=== PATIENT | female | born 1985 | race Caucasian/White ===

== ENCOUNTER 2021-07-14 11:54 | Emergency (ER) | payer OTHER, SELFPAY ==
--- NOTE | ~2021-07-14 | XR_ITS ---
EXAMINATION: XR ANKLE, LEFT XR FOOT, LEFT CLINICAL INFORMATION: Status post injury. COMPARISON: None TECHNIQUE: AP and oblique views of the left ankle. AP and oblique views of the left foot. Lateral view of the left ankle and foot. FINDINGS: Ankle: The bones of the ankle are intact. There is no evidence of acute fracture. Alignment is anatomic. The ankle mortise is congruent. No tibiotalar joint effusion. There is no focal soft tissue swelling. Foot: On the ankle radiographs, there is suggestion of lucency at the base of the 5th metatarsal which is not definitively appreciated on the foot radiographs. The remainder of the foot is unremarkable. Alignment is anatomic with normal joint spaces. The soft tissues are unremarkable. XR/XR ankle LT min 3V IMPRESSION: There is suggestion of lucency at the base of the 5th metatarsal which is seen on the ankle radiographs but not definitively seen on the foot radiographs. However, this is in the location of pain. A nondisplaced radiographically occult 5th metatarsal base fracture is not excluded. Otherwise no other evidence of acute fracture or malalignment in the left ankle and left foot.
--- NOTE | ~2021-07-14 | XR_ITS ---
EXAMINATION: XR ANKLE, LEFT XR FOOT, LEFT CLINICAL INFORMATION: Status post injury. COMPARISON: None TECHNIQUE: AP and oblique views of the left ankle. AP and oblique views of the left foot. Lateral view of the left ankle and foot. FINDINGS: Ankle: The bones of the ankle are intact. There is no evidence of acute fracture. Alignment is anatomic. The ankle mortise is congruent. No tibiotalar joint effusion. There is no focal soft tissue swelling. Foot: On the ankle radiographs, there is suggestion of lucency at the base of the 5th metatarsal which is not definitively appreciated on the foot radiographs. The remainder of the foot is unremarkable. Alignment is anatomic with normal joint spaces. The soft tissues are unremarkable. XR/XR foot LT min 3V IMPRESSION: There is suggestion of lucency at the base of the 5th metatarsal which is seen on the ankle radiographs but not definitively seen on the foot radiographs. However, this is in the location of pain. A nondisplaced radiographically occult 5th metatarsal base fracture is not excluded. Otherwise no other evidence of acute fracture or malalignment in the left ankle and left foot.
[2021-07-14 11:57] VITALS: BP 140/69; PULSE 65; RESP 16; TEMP 36.7; O2SAT 98; BMI 34.1
[2021-07-14] MEDS: Diphth,Pertus(ACell),Tet Adult 0.5 ML SYRINGE IM (13:12)
--- NOTE | 2021-07-14 14:14 | ED.LOWEXIN ---
HPI - Extremity Injury (Lower) General Chief Complaint: Extremity Injury, Lower Stated Complaint: lt foot injury - fall Time Seen by Provider: 07/14/21 12:29 History of Present Illness HPI Narrative: Patient complains of left foot pain after tripping and falling this morning, no numbness weakness or tingling no other injury no skin laceration Related Data Allergies Allergy/AdvReac Type Severity Reaction Status Date / Time azithromycin Allergy Rash Verified 07/14/21 12:01 gluten Allergy Itching Verified 07/14/21 12:01 Review of Systems Review of Systems: Positive for left foot pain Negatives are no headache no head injury no neck pain no back pain no numbness weakness or tingling no skin laceration Yes all other systems are reviewed and are negative PMFSH Past Medical History Source: nursing notes reviewed Medical History (Updated 07/15/21 @ 00:01 by Delroy Sheets) Alopecia Anxiety Physical Exam Vital Signs: Vital Signs: Last Vital Signs Temp 98.1 F 07/14/21 11:57 Pulse 65 07/14/21 11:57 Resp 16 07/14/21 11:57 BP 140/69 H 07/14/21 11:57 Pulse Ox 98 07/14/21 11:57 Body Mass Index 34.1 General appearance is no acute distress Head is normocephalic atraumatic Neck is supple nontender Respiratory no distress The left foot has lateral dorsal minor swelling and tenderness, skin is normal, neurovascular intact distal Other extremities normal Course Course Course Narrative: X-ray was suspicious for fracture at the base of the 5th metatarsal so patient is given postop shoe and advised to follow with orthopedics for further evaluation of foot fracture Discharge Plan Discharge Clinical Impression: Foot fracture, left Patient Disposition: Home, Self-Care Additional Instructions: The x-ray was suspicious for a possible fracture right in the area that is most tender and swollen, so I think there probably is a crack in the bone Follow with orthopedic doctor next week Ice may be helpful, Motrin if needed Return any time any worse condition or any concerns Referrals: Peter Holland MD [Physician] - 2 days (Left foot 5th metatarsal fracture) Interventions: ED Discharge Assessment Last Done: 07/14/21 14:19 Discharge Date/Time: 07/14/21 14:19
== END 2021-07-14 14:19 | disposition home or self-care (01) ==
PROVIDERS: Emergency Provider Internal Medicine; PCP Internal Medicine
DX: S92.902A Unspecified fracture of left foot, initial encounter for closed fracture (principal); X50.1XXA Overexertion from prolonged static or awkward postures, initial encounter; Y93.9 Activity, unspecified; Y92.9 Unspecified place or not applicable; Y99.9 Unspecified external cause status
CPT/HCPCS: 73610; 73630; 90471; 90715; 99283; 99284

== ENCOUNTER 2021-07-23 07:31 | Outpatient (REF) | payer OTHER, SELFPAY | END 2021-07-23 07:32 | disposition home or self-care (01) | LOC: HO.HOSX 07:31 | PROVIDERS: Visit Provider Physician Assistant | DX: Z13.89 Encounter for screening for other disorder (principal) ==

== ENCOUNTER 2021-08-02 07:16 | Outpatient (REF) | payer OTHER, SELFPAY ==
--- NOTE | ~2021-08-02 | XR_ITS ---
EXAMINATION: XR FOOT, LEFT CLINICAL INFORMATION: Pain. COMPARISON: Left foot and ankle radiographs dated 07/14/2021. TECHNIQUE: AP, lateral, and oblique views of the left foot. FINDINGS: No acute fracture or dislocation. No periosteal reaction to suggest subacute fracture. No joint space narrowing or marginal osteophytes. No osseous erosion. No abnormal soft tissue calcification. XR/XR foot LT min 3V IMPRESSION: No fracture or dislocation. No periosteal reaction at the base of the 5th metatarsal to suggest subacute fracture.
== END 2021-08-02 07:17 | disposition home or self-care (01) ==
LOC: HO.HOSX 07:16
PROVIDERS: Visit Provider Physician Assistant
DX: S92.352A Displaced fracture of fifth metatarsal bone, left foot, initial encounter for closed fracture (principal)
CPT/HCPCS: 73630

== ENCOUNTER 2024-04-26 18:22 | Emergency (ER) | payer OTHER, SELFPAY ==
--- NOTE | ~2024-04-26 | XR_ITS ---
EXAMINATION: XR FOOT, LEFT CLINICAL INFORMATION: Pain. COMPARISON: None available. TECHNIQUE: AP, lateral, and oblique views of the left foot. FINDINGS: Visualized ankle mortise and subtalar joints are normal. The intertarsal, tarsometatarsal and interphalangeal joints are intact. No acute fracture or dislocation seen. The soft tissues are normal. XR/XR foot LT min 3V IMPRESSION: Unremarkable left foot exam.
[2024-04-26 19:27] VITALS: BP 121/85; PULSE 89; RESP 16; TEMP 36.9; O2SAT 96; BMI 34.9
--- NOTE | 2024-04-26 19:29 | ED.GENADULT ---
HPI - General Adult General Chief complaint: Extremity Injury, Lower Stated complaint: left foot inj Time Seen by Provider: 04/26/24 23:32 Source: patient Mode of arrival: ambulatory Limitations: no limitations History of Present Illness ED Provider: Gordo Banda NP HPI narrative: Patient is a 39-year-old female who presents emergency department for evaluation of traumatic left foot pain. She reports while walking today her foot slipped out of a sandal resulting in an inversion injury to the left foot. She was ambulatory after it happened but as the day progressed she developed pain particularly to the mid foot along the lateral aspect. Denies any numbness tingling or cold sensation to the foot. Denies any ankle pain, ankle with full range of motion. Related Data Home Medications ?Medication ?Instructions ?Recorded ?Confirmed cetirizine 10 mg capsule (Zyrtec) 10 mg PO DAILY PRN 08/02/21 sertraline 50 mg tablet 75 mg PO DAILY 08/02/21 Allergies Allergy/AdvReac Type Severity Reaction Status Date / Time azithromycin Allergy Rash Verified 04/26/24 19:31 gluten Allergy Itching Verified 04/26/24 19:31 Review of Systems Review of Systems: Yes all other systems are reviewed and are negative PMFSH Past Medical History Attestation statement: The following information was validated with the patient. Source: old records reviewed Medical History Anxiety Alopecia Surgical History Hx of breast reduction, elective (~2003) Social History Social History (Updated 08/02/21 @ 08:28 by Karen Stark CMA) Advance Directives: No Advance Directives Information Provided: Yes Current occupational status: employed Current occupation: Teacher Physical Exam ED Vital Signs: Vital Signs - 24 hr 04/26/24 19:27 04/26/24 23:24 Temperature 98.4 F 98.2 F Pulse Rate 89 72 Respiratory Rate 16 17 Blood Pressure 121/85 139/73 Pulse Oximetry 96 96 Oxygen Delivery Method Room Air Room Air BMI result Body Mass Index 34.9 Appearance: Alert.?Oriented to person, place and time. No acute distress.?Normal affect. Neck: Normal inspection.? Neck supple.?? CVS: Heart sounds normal. Normal heart rate and rhythm.? Pulses normal.?? Respiratory: No respiratory distress.? Lung sounds clear to auscultation bilaterally??? Skin: Skin warm and dry.? Normal skin color.? ? Extremities: No lower extremity edema.? No calf ttp?tenderness upon palpation to the left lateral midfoot. 2+ DP/PT pulse bilaterally Neuro: Moves all extremities spontaneously. Sensation intact bilaterally. Ambulates with mildly antalgic gait. Course Course Course Narrative: RME, this is a rapid medical exam performed by Keith Hinkle please refer to primary provider for complete H&P- 39-year-old female presents for evaluation of left foot pain after rolling her foot while walking. She reports her foot slipped out of the Sandal. Plan for x-rays. There is no tenderness to the left ankle Medical Decision Making Medical Decision Making MDM Narrative: Patient is a 39-year-old female who presents emergency department for evaluation of traumatic left foot pain as per HPI. Extremity is neurovascularly intact distally at the time of evaluation without obvious deformity. XR was obtained in his without evidence of acute fracture dislocation. Symptoms at this time most consistent with sprain. She was offered crutches she however declines. Carson bandage applied, discussed pain management with acetaminophen, rest, ice, Carson bandage for compression, elevation. Will provide with return to work note. Discussed worrisome signs and symptoms that would warrant re-evaluation in the emergency department. All questions answered. Follow-up with PCP Differential Diagnosis Differential Diagnoses: The differential diagnosis associated with the presentation includes (See narrative above) Independent Interpretation I performed an independent interpretation of an: Plain X-Ray (No acute fracture/dislocation) Radiology Impression Discussion of test interpretation with radiology: I have reviewed the radiologist's reading. Radiologist Impression: XR/XR foot LT min 3V IMPRESSION: Unremarkable left foot exam. Independent Historian Clinical information obtained from an independent historian. History obtained from or confirmed by: Friend Prescription Management I considered prescription management with: Pain Medication Discharge Plan Discharge Clinical Impression: Foot sprain Qualifiers: Encounter type: initial encounter Laterality: left Qualified Code(s): S93.602A - Unspecified sprain of left foot, initial encounter Patient Disposition: Home, Self-Care Instructions: Foot Sprain (ED), How to Use an Elastic Bandage (ED), R.I.C.E. Treatment (ED) Referrals: Greta Christine MD [Primary Care Provider] - Stand Alone Forms: Work/School Release Print Language: Portuguese
[2024-04-26 23:24] VITALS: BP 139/73; PULSE 72; RESP 17; TEMP 36.8; O2SAT 96
[2024-04-27 00:32] VITALS: BP 139/73; PULSE 72; RESP 17; TEMP 36.8; O2SAT 96
--- OUTSIDE RECORDS SUMMARY | 2024-04-30 09:32 | XMS_ITS | Continuity of Care Document ---
Author Organization [facility] Mike mirza [facility] Address [address], [address] [place] [address]- Care Team Providers Care Clinical Abstractor Name Role Phone Sun Mercedes MD Primary Care Physician [id number] Date(s): 06/24/23 - 07/24/23 [facility] Mike Montiels [facility] [address], [address] [place], [place] [address] Allergies, Adverse Reactions, Alerts Substance Reaction Severity Status Zithromax Active Glutens Active Medications Jazzy 24 Hour Allergy = 180 mg, By Mouth, Daily, 0 Refills, Maintenance, 06/05/22 14:17:00 EDT, Partial fill upon patientrequest if the prescription is for a schedule II opioid drug. Start Date: 06/05/22 Status: Ordered escitalopram 10 mg oral tablet 1.5 tablet = 15 mg, By Mouth, Daily, 0 Refills, Maintenance, 06/05/22 14:17:00 EDT, Partial fill upon patient request if the prescription is for a schedule II opioid drug. Start Date: 06/05/22 Status: Ordered Problem List Condition Confirmation Course Effective Dates Status Health St atus Informant Anxiety Confirmed Active Obese class I Confirmed Active Social History Social History Type Response Smoking Status Never (less than 100 in lifetime) entered on: 06/22/23 Sex Patient Care team information Care Team Personnel Name: Sun Mercedes MD Position: Reference Physician Member Role: PCP Address: Address: [address] [place] [id number]- Care Team Related Persons Name: MIRZA MORALES Address: home [address] [place] [address] Name: PIEDAD SHEPARD Address: home [address] [place] [address]
--- OUTSIDE RECORDS SUMMARY | 2024-04-30 09:32 | XMS_ITS | Continuity of Care Document ---
Author Organization [facility] Address [address] [place] [phone]- Care Team Providers Care Director Of Graduate Medical Education Name Role Phone Nanci GUIDO, Greta Cervantes Primary Care Physic tammy Encounter [facility] Date(s): 03/19/22 - 04/18/22 [facility] [address] [place] [address]- [place] Allergies, Adverse Reactions, Alerts No Known Allergies Medications Motrin 600 mg oral tablet 600, mg, 1, tablet, By Mouth, 3 times a day, 20, 0, 0, 09/22/07 2:44:07, Print ONEIDA Number, ADS OPPTHS, 68, Constant Indicator Start Date: 09/22/07 Status: Ordered NuLYTELY with Flavor Packs oral powder for reconstitution See Instructions, Drink 240mL every 15-20 minutes until first half is gone. Repeat 6 hours prior toprocedure., # 4,000 mL, 0 Refills, Maintenance, 02/25/22 14:43:00 EDT, [facility]/pharmacy #[id number], Partial fill upon patient request if the prescription is fo... Start Date: 02/25/22 Status: Ordered Percocet-5 Tablet 1, tablet, By Mouth, Every 6 hours, Scheduled / PRN, 15, 0, 0, 09/22/07 2:44:05, as needed for pain, Print ONEIDA Number, ADS OPPTHS, 54 Start Date: 09/22/07 Status: Ordered Valium 5 mg oral tablet 5, mg, 1, tablet, By Mouth, 3 times a day, 10, 0, 0, 09/22/07 2:44:10, Print ONEIDA Number, ADS OPPTHS, 68, Constant Indicator Start Date: 09/22/07 Status: Ordered Social History Social History Type Response Smoking Status Never (less than 100 in lifetime) entered on: 01/21/20 Sex
--- OUTSIDE RECORDS SUMMARY | 2024-04-30 09:32 | XMS_ITS | Continuity of Care Document ---
Author Organization [facility] Address [address] [place] [address]- Care Team Providers Care Dredge Engineer Name Role Phone Nanci GUIDO, Greta Cervantes Primary Care Physic tammy Encounter [facility] Date(s): 10/31/20 - 11/30/20 [facility] [address] [place] [address]- Attending Physician: Admtr, 8 Admitting Physician: Admtr, Ar8 Referring Physician: Admtr, Ar8 Allergies, Adverse Reactions, Alerts Substance Reaction Severity Status NKA Active Medications Motrin 600 mg oral tablet 600, mg, 1, tablet, By Mouth, 3 times a day, 20, 0, 0, 09/22/07 2:44:07, Print ONEIDA Number, ADS OPPTHS, 68, Constant Indicator Start Date: 09/22/07 Status: Ordered Percocet-5 Tablet 1, tablet, By [...]
--- OUTSIDE RECORDS SUMMARY | 2024-04-30 09:32 | XMS_ITS | Continuity of Care Document ---
Author Organization [facility] Address [address] [place] [phone]- Care Team Providers Care Nurse Advocate Name Role Phone Sue Osorio NP Primary Care Physician Encounter [facility] Date(s): 02/24/23 - 04/19/[address] [address]- [place] Attending Physician: Sue Osorio NP Admitting Physician: Sue Osorio NP Referring Physician: Sue Osorio NP Allergies, Adverse Reactions, Alerts Substance Reaction Severity [...] Effective Dates Status Health St atus Informant Obese class I Confirmed Active Social History Social History Type Response Smoking Status Never (less than 100 in lifetime) entered on: 01/21/20 Sex Patient Care team information Care Team Personnel Name: Sue Osorio NP Position: S Outreach Member Role: PCP Address: Address: [address] [place] [address], [facility] [address] [place] [address]- Care Team Related Persons Name: MIRZA MORALES Address: home [address] [place] [address] Name: PIEDAD SHEPARD Address: [address] [address]
--- OUTSIDE RECORDS SUMMARY | 2024-04-30 09:32 | XMS_ITS | Continuity of Care Document ---
Author Organization [facility] Address [address] [place] [address]- Care Team Providers Care Bariatric Surgeon Name Role Phone Nanci GUIDO, Greta Cervantes Primary Care Physic tammy Encounter [facility] Date(s): 11/04/19 - 11/04/[address] [address]- [facility] Attending Physician: Jg GUIDO, Luis Boykin Allergies, Adverse Reactions, Alerts Substance Reaction Severity [...]
--- OUTSIDE RECORDS SUMMARY | 2024-04-30 09:32 | XMS_ITS | Continuity of Care Document ---
Author Organization [facility] Address [address] [place] [address]- Care Team Providers Care Miller Head Name Role Phone Nanci GUIDO, Greta Cervantes Primary Care Physic tammy Encounter [facility] Date(s): 06/05/22 - 06/05/[address] [address]- Discharge Disposition: A-D/C Home Attending Physician: Francis Mclaughlin MD Admitting Physician: Francis Mclaughlin MD Referring Physician: Francis Mclaughlin MD Allergies, Adverse Reactions, Alerts Substance Reaction Severity [...] Date: 06/05/22 Status: Ordered Problem List Condition Effective Dates Status Health Status Inform ant Obese class I(Confirmed) Active Procedures Procedure Date Related Diagnosis Body Site Status Colonoscopy, flexible; diagn ostic, including collection of specimen(s) by brushing or washing, when performed (separate procedure) 06/05/22 Completed Vital Signs Most recent to oldest [Reference Range]: 1 2 3 Height 165 cm (06/05/22 2:14 PM) Weight 88 kg (06/05/22 2:14 PM) Oxygen Saturation [94-100 %] 100 % (06/05/22 3:43 PM) 100 % (06/05/22 3:35 PM) 100 % (06/05/22 2:14 PM) Pulse Rate [55-90 bpm] 70 bpm (06/05/22 2:14 PM) Body Mass Index [18.5-24.99] 32.32 *>HHI* (06/05/22 2:14 PM) Blood Pressure [90-138/55-84 mm Hg] 111/73mm Hg (06/05/22 3:43 PM) 112/66mm Hg (06/05/22 3:35 PM) 140/88mm Hg *H* (06/05/22 2:14 PM) Respiratory Rate [16-30 br/min] 16 br/min (06/05/22 3:43 PM) 18 br/min (06/05/22 3:35 PM) 18 br/min (06/05/22 2:14 PM) Temperature [96.8-100.4 DegF] 97.3 DegF (06/05/22 2:14 PM) Mode of Delivery (Oxygen) Room air (06/05/22 3:43 PM) Room air (06/05/22 3:35 PM) Room air (06/05/22 2:14 PM) Temperature Route Temporal (06/05/22 2:14 PM) Social History Social History Type Response Smoking Status Never (less than 100 in lifetime) entered on: 01/21/20 Sex
--- OUTSIDE RECORDS SUMMARY | 2024-04-30 09:33 | XMS_ITS | Continuity of Care Document ---
Author Organization [facility] ter Address [address] [place] [address]- Care Team Providers Care Aligning Inspector Name Role Phone Sun Mercedes MD Primary Care Physician [phone] Encounter [facility] [place] Date(s): 11/06/23 - 11/06/[address] [address] Discharge Disposition: A-D/C Home Attending Physician: Jessica Coto MD Admitting Physician: Jessica Coto MD Referring Physician: Jessica Coto MD Allergies, Adverse Reactions, Alerts Substance Reaction Severity Status Zithromax full body rash Mild Active Glutens diarrhea, excaberates exzema Active Medications Celebrate Iron + C 1 tablet, By Mouth, Daily, 0 Refills, Maintenance, 11/04/23 12:18:00 EST, Partial fill upon patientrequest if the prescription is for a schedule II opioid drug. Start Date: 11/04/23 Status: Ordered Cetirizine By Mouth, Daily, 0 Refills, Maintenance, 11/04/23 12:17:00 EST, Partial fill upon patient request if the prescription is for a schedule II opioid drug. Start Date: 11/04/23 Status: Ordered Colace sodium 100 mg oral capsule 100 mg, 1, capsule, By Mouth, 2 times a day, PRN, # 30 capsule, Refills 0, Tot. Refills 0, Maintenance, for constipation, 11/06/23 17:00:00 EST, Route to Pharmacy Electronically, [facility]/pharmacy #[id number], Partial fill upon patient request if the prescriptio... Start Date: 11/06/23 Status: Ordered escitalopram 10 mg oral tablet 1.5 tablet = 15 mg, By Mouth, Daily, 0 Refills, Maintenance, 06/05/22 14:17:00 EDT, Partial fill upon patient request if the prescription is for a schedule II opioid drug. Start Date: 06/05/22 Status: Ordered gabapentin 100 mg oral capsule 100 mg, 1, capsule, By Mouth, 3 times a day, # 9 capsule, Refills 5, Tot. Refills 5, Maintenance, 11/06/23 17:00:00 EST, Route to Pharmacy Electronically, [facility]/pharmacy #[id number], Partial fill upon patient request if the prescription is for a schedule II o... Start Date: 11/06/23 Stop Date: 11/24/23 Status: Ordered oxyCODONE 5 mg oral tablet 5 mg, 1, tablet, By Mouth, Every 6 hours, PRN, for 3 days, # 12 tablet, Refills 0, Tot. Refills 0, Acute 11/09/23 17:00:00 EST, for pain, 11/06/23 17:00:00 EST, Route to Pharmacy Electronically, [id number], Partial fill upon patient request if... Start Date: 11/06/23 Stop Date: 11/09/23 Status: Ordered Rinvoq = 30 mg, By Mouth, Daily, 0 Refills, Maintenance, 10/22/23 18:16:00 EST, Partial fill upon patient request if the prescription is for a schedule II opioid drug. Start Date: 10/22/23 Status: Ordered simethicone 80 mg oral tablet, chewable 80 mg, 1, tablet, Chew, 4 times a day, # 12 tablet, Refills 0, Tot. Refills 0, Maintenance, 11/06/23 17:00:00 EST, Route to Pharmacy Electronically, [id number], Partial fill upon patient request if the prescription is for a schedule II opioid... Start Date: 11/06/23 Status: Ordered Tylenol Extra Strength 500 mg oral tablet 2 tablet = 1,000 mg, By Mouth, Every 6 hours, PRN as needed for pain, # 50 tablet, 0 Refills, Maintenance, 11/06/23 17:00:00 EST, Tablet, [id number], Partial fill upon patient request if the prescription is for a schedule II opioid drug., 09/25... Start Date: 11/06/23 Status: Ordered Problem List Condition Confirmation Course Effective Dates Status [facility] Informant Anxiety Confirmed Active Severe obesity (BMI 35.0-39.9) with comorbidity Confirmed Active Vitiligo Confirmed Active Vital Signs Most recent to oldest [Reference Range]: 1 2 3 Height 165.10 cm (11/06/23 11:32 AM) 165.10 cm (11/04/23 12:25 PM) Weight 101.2 kg (11/06/23 11:32 AM) 100.0 kg (11/04/23 12:25 PM) Oxygen Saturation [94-100 %] 95 % (11/06/23 5:15 PM) 93 % *L* (11/06/23 5:00 PM) 93 % *L* (11/06/23 4:45 PM) Pulse Rate [55-90 bpm] 63 bpm (11/06/23 11:32 AM) Body Mass Index [18.5-24.99 kg/m2] 37.13 kg/m2 *>HHI* (11/06/23 11:32 AM) 36.69 kg/m2 *>HHI* (11/04/23 12:25 PM) Blood Pressure [90-138/55-84 mm Hg] 130/83mm Hg (11/06/23 6:45 PM) 132/87mm Hg (11/06/23 6:15 PM) 129/83mm Hg (11/06/23 5:45 PM) Respiratory Rate [16-30 br/min] 17 br/min (11/06/23 5:00 PM) 17 br/min (11/06/23 4:45 PM) 15 br/min *L* (11/06/23 4:30 PM) Temperature [96.8-100.4 DegF] 97.0 DegF (11/06/23 6:00 PM) 97.6 DegF (11/06/23 4:30 PM) 97.8 DegF (11/06/23 3:15 PM) Liters per Minute 6 L/min (11/06/23 3:30 PM) 6 L/min (11/06/23 3:15 PM) Mode of Delivery (Oxygen) Room air (11/06/23 6:45 PM) Room air (11/06/23 5:30 PM) Room air (11/06/23 4:30 PM) Blood pressure sites Arm, right (11/06/23 3:15 PM) Arm, left (11/06/23 11:32 AM) Temperature Route Temporal (11/06/23 6:00 PM) Temporal (11/06/23 4:30 PM) Temporal (11/06/23 3:15 PM) Dry Weight 101.2 kg (11/06/23 11:32 AM) 100.0 kg (11/04/23 12:25 PM) Weight Obtained Via Standing scale (11/06/23 11:32 AM) Patient/family stated (11/04/23 12:25 PM) Dry Weight Obtained Via Standing scale (11/06/23 11:32 AM) Patient/family stated (11/04/23 12:25 PM) Social History Social History Type Response Smoking Status Never (less than 100 in lifetime) entered on: 06/22/23 Sex Note * Jaqui Moses RN: PERFORM Event Display: Discharge/Transfer Note Hospital Authored Date: [id number] Nursing Discharge Note Entered On: 11/06/2023 18:59 EST Performed On: 11/06/2023 18:58 EST by Jaqui Moses RN Nursing Discharge Note 2 Discharge Time : 11/06/2023 18:55 EST Discharge Level of Care at Discharge : Home/Chcf/Foster Care Patient Left Unit Via : Wheelchair Patient Accompanied Off Unit with : Responsible adult DC Instructions Provided & Signed by Pt : Yes Patient Understands D/C Instructions : Yes Patient Instructions Discharge Signed : Yes Did Pt have Specialty Bed or Wound Vac : No Jaqui Moses RN - 11/06/2023 18:58 EST * Jina Alonzo RN: PERFORM Event Display: Patient Education/Instruction Authored Date: [id number] Surgery Adult Discharge Instructions [address] [id number] Name: KELLY MORALES : 1985?? Visit: 11/06/2023 10:39?? Current Date: 11/06/2023 15:39 ?? Account: [id number]?? Surgery Discharge Instructions We would like to thank you for allowing us to assist you with your healthcare needs. The following includes patient education materials and information regarding your injury/illness. Our entire staffstrives to provide an excellent experience for our patients and their families. PLEASE ENSURE YOU FOLLOW-UP PER THE INSTRUCTIONS BELOW! ?? YOUR OPINION IS IMPORTANT TO US! Please complete the survey you may receive by mail or email. Your feedback will be used to make improvements to the healthcare experiences of our patients and their families. Surveys are administered by [employer] ?? If further treatment with your primary care physician or another doctor is recommended, it is important for you to keep the appointment. Call your primary care physician or return to the Emergency Department immediately if your condition worsens, fails to improve, or new symptoms develop. If you need to find a doctor, you can call [facility] for a referral at [phone] or toll free at [phone] [phone]) or log in to [email or web address].. ?? [facility], in keeping with [facility] guidance, no longer requires face masks for staff, patientsor visitors in most situations. Similiar to time spent indoors at other locations, there is the chance that you were exposed to repiratory viruses during your time with us (such as flu or COVID-19). If you develop symptoms concerning for a viral respiratory infection, please seek testing (and treatment if indicated) from your medical provider or home test kit. ?? You can view and manage your care through the patient portal or by using a health care miriam of your choosing. [employer] is a website that allows you to securely view your medical information including your hospital discharge summary, office visit summaries, medications and follow-up visits. You can also request appointments, renew medications, and request access to your medical information using a health care miriam of your choosing, or just ask a question. You are entitled to know the individuals who participated in your treatment. This information is available within your medical record and will be provided upon your request. You can enroll at [email or web address] or register d uring your next office visit. You have been discharged from [facility], Patient Care Unit: [facility]??. If you have any questions regarding these instructions after you leave, please call us and we will be happy to assist you. [facility] Your Care Team Attending Physician Jessica Coto MD?? Discharging Providers Sonali Kay MD Reason for Admission F[facility]RO[facility] CS DS Primary Care Provider Sun Mercedes MD? Advance Directive Health Care Proxy on File No What to do next Instructions From Your Doctor ?? Orders? 11/06/23 15:33:00 EST?? Instructions from your Care Team FOLLOW??POSTOP INSTRUCTIONS Scheduled Follow-Up Appointments 2023 9:40 AM EST ?? With: Jessica Coto MD Where: [facility] [address] 4th [place] [address]- Status: Pending You Need to Schedule the Following Appointments Follow Up with??Jessica Coto When:??Within 1 to 2 weeks Where: [address] [facility] [employer] [place] [address]- Business (1) Follow Up with??Sun Mercedes When:??In 0 days Where: [address] [place] [address]- Business (1) Discharge Medications KELLY MORALES :1985 Visit Date:11/06/2023 Medications: Please continue your medications until treatment is completed or stopped by your provider. You may resume your daily prescription medications. Discuss any questions related to medications with your provider. What How Much When Instructions Next Dose Unchanged Acetaminophen (Tylenol Extra Strength 500 mg oral tablet) 2 tab(s) Oral Every 6 hours as needed for as needed for pain Unchanged Cetirizine Oral Daily Unchanged Docusate (Colace sodium 100 mg oral capsule) 1 capsule Oral Twice a day as needed for for constipation Unchanged Escitalopram (escitalopram 10 mg oral tablet) 1.5 tab(s) Oral Daily Unchanged Gabapentin (gabapentin 100 mg oral capsule) 1 capsule Oral 3 times a day Duration: 3 Days Unchanged Multivitamin With Iron (Celebrate Iron + C) 1 tab(s) Oral Daily Unchanged Oxycodone (oxyCODONE 5 mg oral tablet) 1 tab(s) Oral Every 6 hours as needed for for pain Duration: 3 Days Unchanged Simethicone (simethicone 80 mg oral tablet, chewable) 1 tab(s) Chew 4 times a day Unchanged upadacitinib (Rinvoq) 30 Milligram Oral Daily Allergies (NKA means No Known Allergies) Zithromax??(full body rash) Glutens??(diarrhea, excaberates exzema) Education Materials Below is the list of Educational Leaflet Providered with your Discharge Instructions. Surgery Medical Daystay Surgical Overnight Discharge Instructions?? Valuables and Belongings I fully understand and agree that [facility] accepts no responsibility for all my personal property including clothing, toilet articles, radios, jewelry, dentures, hearing aids, rings, money, or any other property that is in my possession or is brought to me after admission. I understand certain valuables may be placed in a hospital safe for a short period of time. I understand that the hospital is not liable for loss or damage due to accident, fire, or other natural occurrence while said property is in the safe. I accept full responsibility for any personal property that I keep with me, and will not hold the hospital responsible in case of loss or disappearance. I acknowledge that i have been encouraged to send valuables and belongings home. ?? Review of Valuable and Belonging List: With patient Disposition of Belongings: Other: with patient under stretcher Date for Pt to Sign Valuables/Belongings: 11/06/23 11:32:00 ?? Valuables & Belongings ?? Clothes Electronic devices Jewelry Monetary Items Personal devices Miscellaneous Medications (Valuables) Valuables at Bedside Jacket, Pants, Shirt, Shoes, Undergarments Cell phone ? Valuables Sent Home ? Valuables Sent to Security ? Other Discharge Information ? Pulmonary Rehab Status?? Pulmonary Rehab Discharge Status?? Respiratory Rate: 17 br/min ? Common Emergency Awareness Tips IS IT A STROKE? Act FAST and Check for these signs: FACE Does the face look uneven? ARM Does one arm drift down? SPEECH Does their speech sound strange? TIME Call at any sign of stroke ?? Heart Attack Signs Chest discomfort: Most heart attacks involve discomfort in the center of the chest and lasts more than a few minutes, or goes away and comes back. It can feel like uncomfortable pressure, squeezing, fullness or pain. Discomfort in upper body: Symptoms can include pain or discomfort in one or both arms, back, neck, jaw or stomach. Shortness of breath: With or without discomfort. Other signs: Breaking out in a cold sweat, nausea, or lightheaded. Remember, MINUTES DO MATTER. If you experience any of these heart attack warning signs, call to get immediate medical attention! ?? Smoking can increase your chances of developing chronic health problems and can cause harmful effects to other family members in your house. If you smoke, you are strongly encouraged to quit. Please call [facility] [employer] Link at [phone] or [phone] cosmetics ([phone]) or log in to [email or web address] for referrals to smoking cessation programs. ?? The National Suicide Prevention Hotline is available 16/06 if you or someone you know needs to find a reason to keep living. By calling 2-486-555-[place] (9808) you'll be connected to a skilled, trained counselor at a crisis center in your area. SURGERY DISCHARGE INSTRUCTIONS SIGNATURE PAGE KELLY MORALES Location:[facility] Registration Date and Time:11/06/2023 10:39 EST Primary Care Physician: Sun Mercedes MD, Attending Physician: Jessica Coto MD, I KELLY MORALES, have received the above patient education materials/instructions and have verbalized understanding. If ambulance or transport services are being used I further acknowledge being given a choice of service. ?? If you need to contact me, please call me at this number: . Patient/Screen Writer Name: Patient/Screen Writer Signature: Relationship to Patient: Witness Name/Signature: Date: * Jina Alonzo RN: PERFORM, SIGN, VERIFY Event Display: Patient Education Handout Authored Date: [id number] * Jaqui Moses RN: PERFORM Event Display: Patient Education Leaflets Authored Date: [id number] NSAID Analgesic Schedule ?? 604 NSAID???s Analgesic Schedule ?? Pain is the primary source of illness following your procedure and can include dehydration, difficulty and painful swallowing, and weight loss. These symptoms can lead to increased post-operative visits and hospital readmission. The best way to control pain is to take pain medications regularly. Your doctor has recommended both Ibuprofen and Acetaminophen (generic/store brands are okay, too). These can be picked up over the counter at your pharmacy of choice. Follow the instructions on the bottle to determine the proper dosage to give. The simplest way to take these medications it to rotate the two at 3-hour intervals. Here is a sample diagram. The time you take your medications may vary from this example. Do not give Ibuprofen more than every 6 hours or Acetaminophen every 4 hours. Do not give Acetaminophen if your doctor has given you a prescription that contains Acetaminophen. ? * Jina Alonzo RN: PERFORM Event Display: Patient Education Leaflets Authored Date: [id number] Surgery Medical Daystay Surgical Overnight Discharge Instructions ?? 295 Medical Daystay/Surgical Overnight Discharge Instructions ? Since your coordination and judgment may be altered by medication and/or anesthesia, a responsible adult must drive you home from the hospital. ? If you have received medication for pain or sedation while under our care, you should not drive, operate machinery, drink alcohol, or sign any legal documents for 24 hours.?? You should have someone with you at home tonight. ? Remain at home the day of discharge.?? You may be up and about unless otherwise instructed by your physician. ? You may resume your daily prescription medication schedule.?? Any depressant medication should be avoided for 24 hours unless otherwise instructed by your surgeon or anesthesiologist. ? Call your physician for a follow-up appointment.? If you experience unusual or severe pain not relied by your pain medication, excessive bleedingor drainage, persistent nausea and vomiting, excessive swelling or redness, foul odor from incisionsite or fever over 100.6F, you need to call your physician. ? A follow-up phone call by a nurse will be made the day after your procedure.?? If you have stayed with us over night, you will not be receiving a follow-up phone call. ? Nausea and vomiting are a common side effect of prescription pain medication.?? We recommend that pills are not taken on an empty stomach.?? While taking any prescription pain medication you should not drive or drink alcohol. ? Patient Care team information Care Team Personnel Name: Sun Mercedes MD Position: Reference Physician Member Role: PCP Address: Address: [address] [place] [address]- Care Team Related Persons Name: MIRZA MORALES Address: home [address] [place] [address] Name: PIEDAD SHEPARD Address: home [address] [id number]
--- OUTSIDE RECORDS SUMMARY | 2024-04-30 09:33 | XMS_ITS | Continuity of Care Document ---
Author Organization [facility] ter Address [address] [place] [address]- Care Team Providers Care Clinic Supervisor Name Role Phone Nanci GUIDO, Greta Cervantes Primary Care Physic tammy Encounter [facility] [place] [place] Date(s): 01/21/20 - 01/21/[address] [address] Encounter Diagnosis Rash and nonspecific skin eruption(Final) - 01/21/20 Discharge Disposition: A-D/C Home Attending Physician: Derrick Snyder MD Admitting Physician: Derrick Snyder MD Referring Physician: Not on Staff, Referring MD Allergies, Adverse Reactions, Alerts Substance Reaction [...] Constant Indicator Start Date: 09/22/07 Status: Ordered Vital Signs Most recent to oldest [Reference Range]: 1 2 3 Oxygen Saturation [94-100 %] 100 % (01/21/20 5:37 AM) 100 % (01/21/20 4:06 AM) 99 % (01/21/20 2:10 AM) Pulse Rate [55-90 bpm] 73 bpm (01/21/20 5:37 AM) 77 bpm (01/21/20 4:06 AM) 91 bpm *H* (01/21/20 2:10 AM) Blood Pressure [90-138/55-84 mm Hg] 133/84mm Hg (01/21/20 5:37 AM) 137/79mm Hg (01/21/20 4:06 AM) 140/102mm Hg *H* (01/21/20 2:10 AM) Respiratory Rate [16-30 br/min] 20 br/min (01/21/20 5:37 AM) 16 br/min (01/21/20 4:06 AM) 18 br/min (01/21/20 2:10 AM) Temperature [96.8-100.4 DegF] 98.1 DegF (01/21/20 5:37 AM) 97.9 DegF (01/21/20 4:06 AM) 98.2 DegF (01/21/20 2:10 AM) Mode of Delivery (Oxygen) Room air (01/21/20 5:37 AM) Room air (01/21/20 4:06 AM) Room air (01/21/20 2:10 AM) Blood pressure sites Arm, right (01/21/20 5:37 AM) Arm, left (01/21/20 4:06 AM) Arm, right (01/21/20 2:10 AM) Temperature Route Oral (01/21/20 5:37 AM) Oral (01/21/20 4:06 AM) Oral (01/21/20 2:10 AM) Social History Social History Type Response Smoking Status Never (less than 100 in lifetime) entered on: 01/21/20 Sex
--- OUTSIDE RECORDS SUMMARY | 2024-04-30 09:33 | XMS_ITS | Continuity of Care Document ---
Author Organization [facility] Address [address] [place] [address]- Care Team Providers Care Welder/Fabricator Name Role Phone Nanci GUIDO, Greta Cervantes Primary Care Physic tammy Encounter [facility] [place] AC[facility] R [id number] Date(s): 02/25/22 - 03/27/22 [facility] [address] [place] [address]- Attending Physician: Giovanny Cuenca Admitting Physician: Giovanny Cuenca Referring Physician: Admtr, Ar8 Allergies, Adverse Reactions, Alerts No Known Allergies [...] mL, 0 Refills, Maintenance, 02/25/22 14:43:00 EDT, [facility]/pharmacy #[id number], Partial fill upon patient request if [...]
--- OUTSIDE RECORDS SUMMARY | 2024-04-30 09:33 | XMS_ITS | Continuity of Care Document ---
Author Organization [facility] ter Address [address] [place] [address]- Care Team Providers Care Cook Chef Name Role Phone Nanci GUIDO, Greta Cervantes Primary Care Physic tammy Encounter [facility] [place] Date(s): 12/01/19 - 12/08/[address] [address]- [facility] Attending Physician: Jg GUIDO, Luis Boykin Allergies, [...]
--- OUTSIDE RECORDS SUMMARY | 2024-04-30 09:33 | XMS_ITS | Continuity of Care Document ---
Author Organization [facility] Address [address] [place] [address]- Care Team Providers Care Office Support Specialist Name Role Phone Nanci GUIDO, Greta Cervantes Primary Care Physic tammy [place] [facility] [place]s): 03/05/22 - 04/04/22 [facility] [address] [place], [place] [id number]- [place] Allergies, Adverse Reactions, Alerts No Known [...] mL, 0 Refills, Maintenance, 02/25/22 14:43:00 EDT, [facility]/pharmacy #[id number], Partial fill upon patient request [...]
--- OUTSIDE RECORDS SUMMARY | 2024-04-30 09:33 | XMS_ITS | Continuity of Care Document ---
Author Organization [facility] Mike mirza [facility] Address [address] [place] [address]- Care Team Providers Care Desizing Machine Back Tender Name Role Phone Sun Mercedes MD Primary Care Physician [phone] [id number] Date(s): 06/02/23 - 07/02/23 [facility] Mike Montiels [facility] [address] [place], [place] [address] Allergies, Adverse Reactions, Alerts Substance Reaction Severity [...] Reference Physician Member Role: PCP Address: Address: [address] [place] [address]- Care Team Related Persons Name: MIRZA MORALES Address: home [address] [place] [address] Name: PIEDAD SHEPARD Address: home [address] [place] [address]
--- OUTSIDE RECORDS SUMMARY | 2024-04-30 09:33 | XMS_ITS | Continuity of Care Document ---
Author Organization [facility] Mike Bey n[facility] Address [address] [place] [address]- Care Team Providers Care Surface Plate Inspector Name Role Phone Sun Mercedes MD Primary Care Physician Encounter [facility] Date(s): 12/15/23 - 01/14/24 [facility] [address] [place] [address]- Attending Physician: Giovanny Cuenca Admitting Physician: Giovanny Cuenca Referring Physician: AdmtrGiovanny Allergies, Adverse Reactions, Alerts Substance Reaction Severity [...] 11/06/23 17:00:00 EST, Route to Pharmacy Electronically, [facility]/pharmacy #[id number], Partial fill upon patient request if the [...] 11/06/23 17:00:00 EST, Route to Pharmacy Electronically, [facility]/pharmacy #[id number], Partial fill upon patient request if the prescription is for a schedule II o... Start Date: 11/06/23 Stop Date: 11/24/23 Status: Ordered Rinvoq = 30 mg, By [...] [facility] Informant Anxiety Confirmed Active Severe obesity (BMI 35.0-39.9) with comorbidity Confirmed Active Vitiligo Confirmed Active Social History Social History Type Response Smoking Status Never (less than 100 in lifetime) entered on: 06/22/23 Sex Patient Care team information Care Team Personnel Name: Sun Mercedes MD Position: Reference Physician Member Role: PCP Address: Address: [address] [place] [address] Care Team Related Persons Name: MIRZA MORALES Address: home [address] [place] [address] Name: PIEDAD SHEPARD Address: home [address] [place] [address]
--- OUTSIDE RECORDS SUMMARY | 2024-04-30 09:33 | XMS_ITS | Continuity of Care Document ---
Author Organization [facility] Mike Bey n's [facility] Address [address], [address] [place] [address]- Care Team Providers Care Director Of Clinical Applications Name Role Phone Sun Mercedes MD Primary Care Physician [facility] [id number] Date(s): 10/20/23 - 11/19/23 [facility] Mike Montiels [facility] [address] [place], [place] [address] Attending Physician: Giovanny Cuenca Admitting Physician: AdmGiovanny ivy Referring Physician: Admtr, Ar8 Allergies, Adverse Reactions, [...] 11/06/23 17:00:00 EST, Route to Pharmacy Electronically, [facility]/pharmacy #[id number], Partial fill upon patient request if the [...] Reference Physician Member Role: PCP Address: Address: [address] [place] [address] Care Team Related Persons Name: MIRZA MORALES Address: [address] [place] [address] Name: DEVYNRONALDOIL Address: home [address] [place] [address]
--- OUTSIDE RECORDS SUMMARY | 2024-04-30 09:33 | XMS_ITS | Continuity of Care Document ---
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 Name Role Phone Sun Mercedes MD Primary Care Physician [phone] Encounter [id number] Date(s): 08/06/23 - 09/05/23 [facility] Charles[facility] [address] [place], [place] [address] Allergies, Adverse Reactions, Alerts Substance [...] Reference Physician Member Role: PCP Address: Address: [address] [place] [address]- Care Team Related Persons Name: MIRZA MORALES Address: home [address] [place] [address] Name: PIEDAD SHEPARD Address: home [address] [place] [address]
== END 2024-04-27 00:33 | disposition home or self-care (01) ==
PROVIDERS: Emergency Provider Internal Medicine; PCP Internal Medicine
DX: S93.602A Unspecified sprain of left foot, initial encounter (principal); X50.1XXA Overexertion from prolonged static or awkward postures, initial encounter; Y93.01 Activity, walking, marching and hiking; Y92.9 Unspecified place or not applicable; Y99.9 Unspecified external cause status
CPT/HCPCS: 73630; 99283; 99284